=== PATIENT | female | born 1970 | race Caucasian/White ===

== ENCOUNTER 2019-12-11 13:06 | Outpatient (CLI) | payer BC | END 2019-12-11 13:07 | disposition home or self-care (01) | PROVIDERS: ATTEND Family Medicine | DX: R07.9 Chest pain, unspecified (principal); I34.0 Nonrheumatic mitral (valve) insufficiency | CPT/HCPCS: 93017; 93306 ==

== ENCOUNTER 2022-07-27 08:00 | Emergency (ER) | payer BC ==
[2022-07-27] MEDS ORDERED: Ondansetron PF 4 MG/2 ML Vial ONE (08:52)
[2022-07-27] MEDS ORDERED: Morphine 4 MG/ML VIAL ONE (08:52)
[2022-07-27] MEDS ORDERED: Ketamine 50 MG/ML (10ML VIAL) ONE (09:38)
[2022-07-27 09:55] LABS: SARS-CoV-2 NAA Rapid Test Not Detected (NotDetected)
== END 2022-07-27 11:20 | disposition home or self-care (01) ==
LOC: ERS 08:00
DX: S82.851A Displaced trimalleolar fracture of right lower leg, initial encounter for closed fracture (principal); S93.314A Dislocation of tarsal joint of right foot, initial encounter; Z20.822 Contact with and (suspected) exposure to COVID-19; W01.0XXA Fall on same level from slipping, tripping and stumbling without subsequent striking against object, initial encounter
CPT/HCPCS: 27818; 94760; 96374; 96375; J2270; J2405; U0002

== ENCOUNTER 2022-08-02 09:55 | Day surgery (SDC) | payer BC ==
[2022-08-01 14:20] VITALS: BMI 33.6
[2022-08-02] MEDS ORDERED: Midazolam HCl 2 mg/2 ml Vial ONE ×2 (11:19→12:12)
[2022-08-02] MEDS ORDERED: Ropivacaine 0.5% HCl/PF (150 MG/30 ML VIAL) ONE ×2 (11:19)
[2022-08-02] MEDS ORDERED: Fentanyl 100 MCG/2 ML VIAL ONE ×3 (11:19→15:45)
[2022-08-02] MEDS ORDERED: fentaNYL Citrate/PF 100 MCG/2 ML SYRINGE ONE (12:12)
[2022-08-02] MEDS ORDERED: HYDROmorphone 0.5 MG/0.5 ML SYRINGE ONE (12:13)
[2022-08-02] MEDS ORDERED: Zolpidem Tartrate 5 MG TAB PO PRN (12:30)
[2022-08-02] MEDS ORDERED: Ropivacaine 0.2% 550 ML 550 ML NERVE BLCK SCH (12:30)
[2022-08-02] MEDS ORDERED: Ketorolac Tromethamine 30 MG/ML VIAL IVP PRN (12:30)
[2022-08-02] MEDS ORDERED: CEFAZOLIN 2 GM VIAL ONE (12:30)
[2022-08-02] MEDS ORDERED: Fentanyl 100 MCG/2 ML VIAL IV PRN (12:30)
[2022-08-02] MEDS ORDERED: Promethazine HCl 25 MG/ML VIAL IM PRN (12:30)
[2022-08-02] MEDS ORDERED: traMADol HCl 50 MG TAB PO PRN ×2 (12:30)
[2022-08-02] MEDS ORDERED: Ondansetron PF 4 MG/2 ML Vial IVP PRN (12:30)
[2022-08-02] MEDS ORDERED: Sodium Chloride 0.9% 100 ML ONE (12:30)
[2022-08-02] MEDS ORDERED: HYDROcodone/Acetaminophen 5/325 mg Tablet PO PRN ×2 (12:30)
[2022-08-02] MEDS ORDERED: PROPOFOL 200 MG/20 ML VIAL ONE (13:00)
[2022-08-02] MEDS ORDERED: Ondansetron PF 4 MG/2 ML Vial ONE (13:00)
[2022-08-02] MEDS ORDERED: Lidocaine 1% MPF 2 ML VIAL ONE (13:00)
[2022-08-02] MEDS ORDERED: Dexamethasone 20 MG/5 ML VIAL ONE (13:00)
== END 2022-08-02 17:25 | disposition home or self-care (01) ==
LOC: SDC 09:55
PROVIDERS: ATTEND Orthopaedic Surgery
PROC: 0QSJ04Z Reposition Right Fibula with Internal Fixation Device, Open Approach (ICD-10-PCS; principal; 2022-08-02)
PROC: 0QSG04Z Reposition Right Tibia with Internal Fixation Device, Open Approach (ICD-10-PCS; principal; 2022-08-02)
DX: S82.851A Displaced trimalleolar fracture of right lower leg, initial encounter for closed fracture (principal); Z88.8 Allergy status to other drugs, medicaments and biological substances; Z91.048 Other nonmedicinal substance allergy status; Z87.891 Personal history of nicotine dependence; X58.XXXA Exposure to other specified factors, initial encounter
CPT/HCPCS: 76000; A4306; C1713; J0690; J1100; J1170; J2250; J2405; J2704; J2795; J3010; J3490

== ENCOUNTER 2024-10-17 10:36 | Day surgery (SDC) | payer BC ==
[2024-10-16 13:56] VITALS: BMI 33.6
[2024-10-17] MEDS ORDERED: PROPOFOL 20 ML ONE (12:12)
[2024-10-17] MEDS ORDERED: Lidocaine 2% PF 5 ML VIAL ONE (12:13)
[2024-10-17] MEDS ORDERED: fentaNYL PF 100 MCG/2 ML SYRINGE ONE (12:13)
[2024-10-17] MEDS ORDERED: Clindamycin/D5W 900 mg/50 ml Premix Bag ONE (12:20)
[2024-10-17] MEDS ORDERED: Dexamethasone 4 mg/ml Vial ONE (13:35)
[2024-10-17] MEDS ORDERED: Ondansetron PF 4 MG/2 ML Vial ONE (13:35)
[2024-10-17] MEDS ORDERED: Bupivacaine PF 0.5% 30 ML VIAL ONE (13:36)
[2024-10-17] MEDS ORDERED: Ketorolac Tromethamine 30 MG (1 mL) VIAL ONE (13:55)
[2024-10-17] MEDS ORDERED: fentaNYL 50 mcg/mL 1 mL Vial ONE ×4 (13:56→15:23)
== END 2024-10-17 17:20 | disposition home or self-care (01) ==
LOC: SDC 10:36
PROVIDERS: ATTEND Orthopaedic Surgery
PROC: 2W5LXYZ Removal of Other Device on Right Lower Extremity (ICD-10-PCS; principal; 2024-10-17)
DX: T85.848A Pain due to other internal prosthetic devices, implants and grafts, initial encounter (principal); S82.851A Displaced trimalleolar fracture of right lower leg, initial encounter for closed fracture; Z91.018 Allergy to other foods; Z88.0 Allergy status to penicillin; Z79.899 Other long term (current) drug therapy; E78.00 Pure hypercholesterolemia, unspecified; Z98.890 Other specified postprocedural states; Z87.891 Personal history of nicotine dependence; Y83.1 Surgical operation with implant of artificial internal device as the cause of abnormal reaction of the patient, or of later complication, without mention of misadventure at the time of the procedure; X58.XXXA Exposure to other specified factors, initial encounter
CPT/HCPCS: J0665; J1100; J1885; J2405; J2704; J3010; J3490